=== PATIENT | female | born 1960 | race Hispanic/Latino ===

== ENCOUNTER 2023-11-02 13:21 | Inpatient (IN) | payer MEDICARE ==
[~2023-11-02] VITALS: Ht 165.1 cm; Wt 126.2 kg
[2023-11-02] MEDS ORDERED: CEFTRIAXONE 1 GM VIAL IV SCH (13:45)
[2023-11-02 14:04] LABS: BASOPHILS % 0.3 % (0.0-1.0); HEMATOCRIT 40.2 % (34.2-44.1); HEMOGLOBIN 12.6 g/dL (12.0-16.0); LYMPHOCYTES # (AUTO) 0.7 (1.0-3.2); LYMPHOCYTES % 9.5 % (18.0-39.1); MEAN CORPUSCULAR HEMOGLOBIN 27.5 pg (28-32); MEAN CORPUSCULAR HGB CONC 31.3 g/dL (31-35); MEAN CORPUSCULAR VOLUME 87.6 fL (81-99); MONOCYTES # (AUTO) 0.4 (0.2-0.8); MONOCYTES % 5.9 % (4.4-11.3); NEUTROPHILS # (AUTO) 5.9 (2.1-6.9); NEUTROPHILS % 83.3 % (38.7-80.0); PLATELET COUNT 91 x10e3/uL (140-360); RED BLOOD COUNT 4.59 x10e6/uL (3.6-5.1); RED CELL DISTRIBUTION WIDTH 15.4 % (11.7-14.4); WHITE BLOOD COUNT 7.06 x10e3/uL (4.8-10.8)
[2023-11-02 14:09] LABS: INR 1.15; PROTHROMBIN TIME 15.3 seconds (11.9-14.5)
[2023-11-02 14:10] LABS: PARTIAL THROMBOPLASTIN TIME 30.5 seconds (23.8-35.5)
[2023-11-02 14:16] LABS: ALBUMIN 3.2 g/dL (3.5-5.0); ALBUMIN/GLOBULIN RATIO 0.8 (0.8-2.0); ANION GAP 14.6 mmol/L (8-16); BILIRUBIN,TOTAL 1.4 mg/dL (0.2-1.2); CALCIUM 8.5 mg/dL (8.4-10.2); CREATININE, SERUM 1.25 mg/dL (0.57-1.11); POTASSIUM 3.6 mmol/L (3.5-5.1); TOTAL PROTEIN 7.4 g/dL (6.5-8.1)
[2023-11-02] MEDS: SODIUM CHLORIDE 0.9% 1000ML 1,000 ML IV ONE (15:21)
[2023-11-02] MEDS: ACETAMINOPHEN 325 MG TAB PO ONE (15:39)
[2023-11-02 16:41] LABS: BILIRUBIN,URINE NEGATIVE (NEGATIVE); CLARITY,URINE HAZY (CLEAR); COLOR,URINE YELLOW (YELLOW); GLUCOSE, URINE 1+ (NEGATIVE); KETONES,URINE NEGATIVE (NEGATIVE); LEUKOCYTE ESTERASE ,URINE MODERATE (NEGATIVE); NITRITE,URINE POSITIVE (NEGATIVE); PH,URINE 7 (5 - 7); PROTEIN,URINE DIPSTICK 2+ (NEGATIVE); URINE UROBILINOGEN 0.2 mg/dL (0.2 - 1)
[2023-11-02 16:53] LABS: WBC,URINE (MAN) >50 /HPF (0-5)
[2023-11-02 16:54] LABS: BACTERIA,URINE MODERATE /HPF
[2023-11-02] MEDS ORDERED: ONDANSETRON HCL INJ 2MG/ML 2ML 2 MG/ML VIAL IV PRN (17:00)
[2023-11-02 17:40] VITALS: PULSE 86; RESP 20; TEMP 98.9
[2023-11-02 18:05] LABS: LYMPHOCYTES % (MANUAL) 11 % (19-48); MONOCYTES % (MANUAL) 7 % (3.4-9.0); NEUTROPHILS % (MANUAL) 82 % (40-74)
[2023-11-02 18:06] LABS: HYPOCHROMASIA SLIGHT; PLATELET ESTIMATE MODERATELY DECREASED; PLATELET MORPHOLOGY COMMENT NORMAL; RBC MORPHOLOGY COMMENT NORMAL
[2023-11-02 20:00] VITALS: BP 143/75; PULSE 84; RESP 20; TEMP 98; O2SAT 98
[2023-11-02 22:34] VITALS: TEMP 100.9
[2023-11-02] MEDS: SODIUM CHLORIDE 0.9% 1000ML 1,000 ML IV SCH (22:39)
[2023-11-02] MEDS ORDERED: CARVEDILOL6.25 MG PO (23:58)
[2023-11-02] MEDS ORDERED: ATORVASTATIN CA10 MG PO (23:58)
[2023-11-02] MEDS ORDERED: LOSARTAN POTASS50 MG PO (23:58)
[2023-11-02] MEDS ORDERED: PIOGLITAZONE HC30 MG PO (23:58)
[2023-11-03] VITALS (7 sets, daily range): BP systolic 135–169; BP diastolic 66–83; PULSE 74–92; RESP 18–21; TEMP 97.8–99.1; O2SAT 95–100
[2023-11-03] MEDS ORDERED: ACETAMINOPHEN 325 MG TAB PO PRN
[2023-11-03] MEDS ORDERED: DEXTROSE 50% SYRINGE 50 ML IV PRN (00:15)
[2023-11-03 06:01] LABS: BASOPHILS % 0.4 % (0.0-1.0); EOSINOPHILS # (AUTO) 0.1 (0.0-0.4); EOSINOPHILS % 0.9 % (0.0-6.0); HEMOGLOBIN 10.9 g/dL (12.0-16.0); LYMPHOCYTES # (AUTO) 1.3 (1.0-3.2); LYMPHOCYTES % 24.1 % (18.0-39.1); MEAN CORPUSCULAR HEMOGLOBIN 27.5 pg (28-32); MEAN CORPUSCULAR HGB CONC 31.1 g/dL (31-35); MEAN CORPUSCULAR VOLUME 88.4 fL (81-99); MONOCYTES # (AUTO) 0.7 (0.2-0.8); MONOCYTES % 13.1 % (4.4-11.3); NEUTROPHILS # (AUTO) 3.3 (2.1-6.9); NEUTROPHILS % 61.1 % (38.7-80.0); PLATELET COUNT 72 x10e3/uL (140-360); RED BLOOD COUNT 3.96 x10e6/uL (3.6-5.1); RED CELL DISTRIBUTION WIDTH 15.7 % (11.7-14.4); WHITE BLOOD COUNT 5.35 x10e3/uL (4.8-10.8)
[2023-11-03 06:38] LABS: ALBUMIN 2.5 g/dL (3.5-5.0); ALBUMIN/GLOBULIN RATIO 0.7 (0.8-2.0); ANION GAP 11.4 mmol/L (8-16); BILIRUBIN,TOTAL 0.8 mg/dL (0.2-1.2); CALCIUM 7.7 mg/dL (8.4-10.2); CREATININE, SERUM 1.03 mg/dL (0.57-1.11); TOTAL PROTEIN 6.1 g/dL (6.5-8.1)
[2023-11-03 06:49] LABS: POTASSIUM 3.4 mmol/L (3.5-5.1)
[2023-11-03] MEDS: ACETAMINOPHEN 325 MG TAB PO PRN (07:00)
[2023-11-03] MEDS: INSULIN LISPRO 100 UNIT/1 ML 3ML VIAL SQ SCH (07:30)
[2023-11-03] MEDS: LOSARTAN POTASSIUM 25 MG TAB PO SCH (08:30)
[2023-11-03] MEDS: PIOGLITAZONE HCL 15 MG TAB PO SCH (08:30)
[2023-11-03] MEDS: CARVEDILOL 3.125 MG TAB PO SCH (08:30)
[2023-11-03] MEDS ORDERED: CARVEDILOL 3.125 MG TAB PO SCH (09:00)
[2023-11-04] VITALS (8 sets, daily range): BP systolic 147–166; BP diastolic 67–92; PULSE 68–81; RESP 16–19; TEMP 97.4–99; O2SAT 95–99
[2023-11-04 01:07] LABS: % IRON SATURATION 7 % (15-50); IRON 19 ug/dL (50-170); TOTAL IRON BINDING CAPACITY 286 ug/dL (261-478); TRANSFERRIN 204 mg/dL (180-382)
[2023-11-04 02:56] LABS: FOLATE 8.5 ng/mL (7.0-15.4)
[2023-11-04] MEDS ORDERED: HYDRALAZINE HCL 20 MG/ML VIAL IV PRN (07:30)
[2023-11-04 17:39] LABS: HEPATITIS B SURFACE AG (P) Non Reactive
[2023-11-04 17:40] LABS: HEPATITIS C ANTIBODY Non Reactive
[2023-11-05] VITALS (7 sets, daily range): BP systolic 149–175; BP diastolic 66–81; PULSE 62–73; RESP 18–22; TEMP 97.6–98.6; O2SAT 96–100
[2023-11-05] MEDS: IRON SUCROSE 100 MG in SODIUM CHLORIDE 0.9% 100 ML IV SCH (08:55)
[2023-11-05] MEDS: TRAZODONE HCL 50 MG TAB PO SCH (21:14)
[2023-11-06] VITALS (7 sets, daily range): BP systolic 143–166; BP diastolic 64–78; PULSE 70–90; RESP 16–18; TEMP 98.3–99; O2SAT 94–98
[2023-11-07 08:00] VITALS: BP 152/75; PULSE 73; RESP 18; TEMP 98.4; O2SAT 96
[2023-11-07 08:37] VITALS: BP 152/75; PULSE 73; RESP 18; TEMP 98.4; O2SAT 96
[2023-11-07 10:27] LABS: BASOPHILS % 0.8 % (0.0-1.0); EOSINOPHILS # (AUTO) 0.1 (0.0-0.4); HEMATOCRIT 35.5 % (34.2-44.1); LYMPHOCYTES # (AUTO) 1.2 (1.0-3.2); LYMPHOCYTES % 34.3 % (18.0-39.1); MEAN CORPUSCULAR HEMOGLOBIN 27.4 pg (28-32); MEAN CORPUSCULAR VOLUME 88.5 fL (81-99); MONOCYTES # (AUTO) 0.3 (0.2-0.8); MONOCYTES % 8.4 % (4.4-11.3); NEUTROPHILS # (AUTO) 1.9 (2.1-6.9); NEUTROPHILS % 53.7 % (38.7-80.0); PLATELET COUNT 102 x10e3/uL (140-360); RED BLOOD COUNT 4.01 x10e6/uL (3.6-5.1); RED CELL DISTRIBUTION WIDTH 15.5 % (11.7-14.4); WHITE BLOOD COUNT 3.56 x10e3/uL (4.8-10.8)
[2023-11-07 10:51] LABS: ALBUMIN 2.6 g/dL (3.5-5.0); ALBUMIN/GLOBULIN RATIO 0.7 (0.8-2.0); ANION GAP 12.3 mmol/L (8-16); BILIRUBIN,TOTAL 0.7 mg/dL (0.2-1.2); CREATININE, SERUM 0.95 mg/dL (0.57-1.11); TOTAL PROTEIN 6.4 g/dL (6.5-8.1)
[2023-11-07 10:53] LABS: POTASSIUM 3.3 mmol/L (3.5-5.1)
[2023-11-07 12:00] VITALS: BP 135/75; PULSE 68; RESP 19; TEMP 98.3; O2SAT 95
[2023-11-07 16:29] VITALS: BP 141/79; PULSE 71; RESP 19; TEMP 98.3; O2SAT 97
[2023-11-07 20:00] VITALS: BP 147/62; PULSE 74; RESP 18; TEMP 98.4; O2SAT 98
[2023-11-08] VITALS (7 sets, daily range): BP systolic 124–156; BP diastolic 51–72; PULSE 65–85; RESP 16–22; TEMP 98–98.9; O2SAT 95–100
[2023-11-09 03:20] VITALS: BP 136/67; PULSE 74; RESP 18; TEMP 98.3; O2SAT 93
[2023-11-09 07:31] VITALS: BP 154/67; PULSE 71; RESP 17; TEMP 98.1; O2SAT 99
[2023-11-09 11:14] VITALS: BP 136/75; PULSE 58; RESP 17; TEMP 98.2; O2SAT 96
[2023-11-09 15:58] VITALS: BP 148/73; PULSE 70; RESP 19; TEMP 97.4; O2SAT 97
[2023-11-09] MEDS ORDERED: CHLORASEPTIC SPRAY 177 ML BTL MM PRN (16:30)
== END 2023-11-09 21:15 | disposition home or self-care (01) | DRG 872 ==
LOC: ER 14:26 → ERHOLD 16:48 → MED/SURG3 18:20
PROVIDERS: ADMIT Internal Medicine; ATTEND Internal Medicine
PROC: 3E0333Z Introduction of Anti-inflammatory into Peripheral Vein, Percutaneous Approach (ICD-10-PCS; principal; 2023-11-02)
DX: A41.51 Sepsis due to Escherichia coli [E. coli] (principal); E87.20 Acidosis, unspecified; Z16.12 Extended spectrum beta lactamase (ESBL) resistance; N17.9 Acute kidney failure, unspecified; Z68.42 Body mass index [BMI] 45.0-49.9, adult; N30.90 Cystitis, unspecified without hematuria; E66.01 Morbid (severe) obesity due to excess calories; E88.89 Other specified metabolic disorders; R16.0 Hepatomegaly, not elsewhere classified; R65.20 Severe sepsis without septic shock; E11.22 Type 2 diabetes mellitus with diabetic chronic kidney disease; D50.9 Iron deficiency anemia, unspecified; Z11.52 Encounter for screening for COVID-19; E11.65 Type 2 diabetes mellitus with hyperglycemia; I12.9 Hypertensive chronic kidney disease with stage 1 through stage 4 chronic kidney disease, or unspecified chronic kidney disease; E78.5 Hyperlipidemia, unspecified; N18.9 Chronic kidney disease, unspecified; K80.20 Calculus of gallbladder without cholecystitis without obstruction
CPT/HCPCS: 36415; 71045; 76705; 80053; 81001; 82607; 82746; 82948; 83540; 83605; 84466; 85025; 85045; 85610; 85730; 87040; 87086; 87186; 87400; 93005; 99284; J0696; J1756; J2185; J7030; J7050; U0002